=== PATIENT | female | born 1995 | race African-American/Black ===

== ENCOUNTER 2023-05-18 11:07 | Emergency (ER) | payer MEDICAID, MEDICARE ==
[~2023-05-18] VITALS: Ht 170.2 cm; Wt 114.0 kg
[2023-05-18 11:17] VITALS: O2SAT 98
[2023-05-18] MEDS ORDERED: FLUC150T46 MT (11:50)
[2023-05-18 11:59] VITALS: BP 150/73; PULSE 83; RESP 18; TEMP 98.1
== END 2023-05-18 12:07 | disposition home or self-care (01) ==
LOC: ER 11:56
DX: T19.2XXA Foreign body in vulva and vagina, initial encounter (principal); X58.XXXA Exposure to other specified factors, initial encounter; Y93.89 Activity, other specified; Y92.89 Other specified places as the place of occurrence of the external cause; Y99.8 Other external cause status
CPT/HCPCS: 99284; Z7610; 99283